=== PATIENT | female | born 1990 | race Caucasian/White ===

== ENCOUNTER → 2018-10-16 07:11 | Outpatient (CLI) | payer OTHER, SELFPAY ==
--- NOTE | 2018-10-16 07:17 | DI.US.S_ITS ---
PROCEDURE: US OB <= 14 WEEKS FETUS INDICATIONS: DATES OUTSIDE/PRIOR DATING DATA: Last menstrual period (LMP): 07/07/18. LMP-based estimated date of delivery (QUYEN): 04/13/19. First dating scan (date and location): 10/16/18. Estimated date of delivery (QUYEN) from first dating scan: 04/19/19. TECHNIQUE: Real-time scanning was performed of the fetus and maternal pelvic organs, with image documentation. Endovaginal scanning was also performed to better visualize the fetus and maternal ovaries. COMPARISON: None. FINDINGS: Embryo: BPD 2.3 cm, 13 weeks 6 days. Head circumference 8.7 cm, 13 weeks 6 days. Abdominal circumference 7.0 cm, 13 weeks 4 days. Femur length 1.1 cm, 13 weeks 1 day. Composite gestational age is 13 weeks 4 days. Measurement variability in dating: +/- 4 weeks by LMP, +/- 7 days by mean sac diameter (use before 6 weeks gestation if crown-rump length not able to be measured), +/- 5 days by crown-rump length (up to 8 weeks 6 days gestation), +/- 7 days by crown-rump length (up to 13 weeks 6 days gestation). Maternal organs: Ovaries not seen. Limited images through the kidneys demonstrate no hydronephrosis. IMPRESSION: 13 week 4 day gestational age, viability is documented. The delivery date is projected to be centered on 04/19/19. Followup anatomic survey at approximately 21 weeks gestation is recommended. Dictated by: Mo Hong M.D. on 10/16/2018 at 10:19 Approved by: Mo Hong M.D. on 10/16/2018 at 10:22
[2018-10-16 09:32] LABS: Add Manual Diff / Slide Review NO; Basophils Absolute Auto 0 /uL (0-100); Basophils Percent Auto 0.1 % (0-2); Eosinophils Absolute Auto 100 /uL (0-450); Eosinophils Percent Auto 1.6 % (2-4); Hematocrit 36.4 % (36-46); Hemoglobin 12.6 g/dL (12.0-16.0); Lymphocytes Absolute Auto 1400 /uL (1100-4500); Lymphocytes Percent Auto 21.1 % (25-40); Mean Corpuscular HGB Conc 34.5 % (30-36); Mean Corpuscular Hemoglobin 31.8 PG (26-34); Mean Corpuscular Volume 92.1 fL (80-100); Monocytes Absolute Auto 400 /uL (0-900); Monocytes Percent Auto 5.3 % (3-14); Neutrophils Absolute Auto 4700 /uL (1500-7000); Neutrophils Percent Auto 71.9 % (50-75); Platelet Count 235 X10^3/uL (150-400); Red Blood Cell Count 3.96 X10^6/uL (4.0-5.2); Red Cell Distribution Width 11.9 % (11.6-14.8); White Blood Cell Count 6.6 X10^3/uL (4.5-11.0)
[2018-10-16 09:35] LABS: Appearance Urine UA SL CLOUDY; Bilirubin Urine UA NEGATIVE (NEGATIVE); Glucose Urine UA NEGATIVE (Negative); Ketones Urine UA NEGATIVE (NEGATIVE); Leukocyte Esterase Urine UA 2+ (NEGATIVE); Nitrite Urine UA NEGATIVE (Negative); Occult Blood Urine UA NEGATIVE (Negative); Protein Urine UA NEGATIVE (Negative); Urobilinogen Urine UA 0.2 E.U./dL (0.2)
[2018-10-16 09:36] LABS: Color Urine UA Straw
[2018-10-16 10:10] LABS: Bacteria Urine Many (>30); RBC Urine 0-1/HPF (0-5/HPF); Squamous Epithelial Cell Urine 5-10 /HPF; WBC Urine 5-10/HPF (0-5/HPF)
[2018-10-16 10:29] LABS: Hepatitis B Surface Antigen NEGATIVE s/c (NEGATIVE); Rubella Antibody IgG 41.5 IU/mL (>15)
[2018-10-16 10:50] LABS: HIV 1 and 2 Antibody NEGATIVE (NEGATIVE); Hep C Virus Ab w/Reflex Quant NEGATIVE s/c (NEGATIVE)
[2018-10-17 22:00] LABS: RPR Screen Nonreactive (Nonreactive)
== END ==
PROVIDERS: Visit Provider Obstetrics & Gynecology
DX: Z34.01 Encounter for supervision of normal first pregnancy, first trimester (principal); Z3A.13 13 weeks gestation of pregnancy
CPT/HCPCS: 36415; 76801; 76817; 80055; 81003; 81015; 86703; 86787; 86803; 86850; 86900; 86901; 87086

== ENCOUNTER → 2018-11-25 12:10 | Outpatient (CLI) | payer OTHER, MEDICAID, SELFPAY ==
--- NOTE | 2018-11-25 12:11 | DI.US.S_ITS ---
PROCEDURE: US OB >= 14 WEEKS FETUS INDICATIONS: 20 week anatomic survey OUTSIDE/PRIOR DATING DATA: Last menstrual period (LMP): 07/07/18. LMP-based estimated date of delivery (QUYEN): 04/13/19. First dating scan (date and location): 10/16/18. Estimated date of delivery (QUYEN) from first dating scan: 04/19/19. TECHNIQUE: Real-time scanning was performed of the fetus, with image documentation and biometric measurements. Endovaginal scanning: Not performed COMPARISON: None. FINDINGS: General: A single living intrauterine gestation is present. Presentation: Vertex Placenta: Placental position is posterior, without previa. Amniotic fluid index: Visually within normal limits. heart rate: 131 beats per minute. Maternal cervical canal: 3.7 cm long. Normal lower limit is 2.5 cm. biometrics: Biparietal diameter: 4.3 cm, 19 week one day Head circumference: 15.2 cm, 18 weeks 2 days Abdominal circumference: 14 cm, 19 weeks 3 days Femur length: 2.9 cm, 18 weeks 6 days Estimated gestational age from initial scan: 19 week 2 days. Composite gestational age from present scan: 19 week zero day Estimated weight and percentile: 270 g, 31% Measurement variability for biometric dating: +/- 7 days from 14 weeks to 15 weeks 6 days gestation, +/- 10 days from 16 weeks to 21 weeks 6 days gestation, +/- 2 weeks from 22 weeks to 27 weeks 6 days gestation, +/- 3 weeks for 28 weeks gestation or later. weight reference: 4500 g or EFW >90/95% is considered macrosomia or large for gestational age. EFW <10% is small for gestational age. EFW 5% or less is considered intra-uterine growth restriction. Anatomic survey: Neuro: Ventricles are non-dilated at less than 10 mm. Cisterna magna is normal at 3-11 mm. Cerebellum is normal in size and morphology. Nuchal skin fold: Normal at less than 6 mm between 14-21 weeks gestational age. Face: Nose and lips, facial profile are normal. Spine: No evidence for spina bifida. Heart: 4-chambered heart is present, with normal ventricular outflow tracts. Diaphragm: Diaphragm is intact. Stomach: Left-sided stomach is present. Kidneys: No hydronephrosis. Normal is less than 5 mm in 2nd trimester, less than 7 mm in 3rd trimester. Cord: 3-vessel cord has orthotopic insertion. Bladder: Normal in size. Extremities: All 4 extremities identified. IMPRESSION: Single live interim with fetus in vertex presentation. heart rate is 131 beats per minute. Normal growth. Normal anatomic survey. Dictated by: Luke Rowell M.D. on 11/25/2018 at 14:08 Approved by: Luke Rowell M.D. on 11/25/2018 at 14:11
[2018-12-01 11:00] LABS: AFP, Serum 53.8 ng/mL; Cigarette Smoker N; Donated Egg NOT GIVEN; Donor Egg Age NOT GIVEN; Estriol, Free 1.29 ng/mL; Inhibin A, Dimeric 148 pg/mL; Maternal Ethnicity CAUCASIAN; Maternal Weight 152 lbs; Number of Fetuses 1; Previous Pregnancy Down Syndro NOT GIVEN; hCG, MoM 0.97; hCG, Serum 18.8 IU/mL
== END ==
PROVIDERS: Visit Provider Obstetrics & Gynecology
DX: Z34.02 Encounter for supervision of normal first pregnancy, second trimester (principal); Z3A.19 19 weeks gestation of pregnancy
CPT/HCPCS: 36415; 76811; 82105; 82677; 84702; 86336

== ENCOUNTER → 2019-03-10 09:52 | Outpatient (CLI) | payer OTHER, MEDICAID, SELFPAY ==
[2019-03-11 18:53] LABS: Strep Grp B PCR NEG for Grp B Strep
== END ==
PROVIDERS: Visit Provider Obstetrics & Gynecology
DX: Z34.03 Encounter for supervision of normal first pregnancy, third trimester (principal)
CPT/HCPCS: 87653

== ENCOUNTER 2019-03-31 16:34 | Observation (INO) | payer OTHER, MEDICAID, SELFPAY ==
[2019-03-31 17:20] LABS: Add Manual Diff / Slide Review NO; Basophils Absolute Auto 0 /uL (0-100); Basophils Percent Auto 0.2 % (0-2); Eosinophils Absolute Auto 100 /uL (0-450); Eosinophils Percent Auto 0.6 % (2-4); Hemoglobin 12.6 g/dL (12.0-16.0); Lymphocytes Absolute Auto 2100 /uL (1100-4500); Lymphocytes Percent Auto 14.9 % (25-40); Mean Corpuscular HGB Conc 34.1 % (30-36); Mean Corpuscular Hemoglobin 30.4 PG (26-34); Monocytes Absolute Auto 900 /uL (0-900); Monocytes Percent Auto 6.3 % (3-14); Neutrophils Absolute Auto 11000 /uL (1500-7000); Platelet Count 273 X10^3/uL (150-400); Red Blood Cell Count 4.16 X10^6/uL (4.0-5.2); Red Cell Distribution Width 13.4 % (11.6-14.8); White Blood Cell Count 14.1 X10^3/uL (4.5-11.0)
[2019-03-31 17:30] LABS: Aspartate Aminotransferase 16 IU/L (14-36); Blood Urea Nitrogen 9 mg/dL (7-17); Estimated Glomerular Filt Rate > 60.0 mL/min (>60); Uric Acid 5.4 mg/dL (2.5-6.2)
[2019-03-31 17:58] LABS: Bilirubin Urine UA NEGATIVE (NEGATIVE); Color Urine UA YELLOW; Glucose Urine UA NEGATIVE (Negative); Ketones Urine UA NEGATIVE (NEGATIVE); Leukocyte Esterase Urine UA TRACE (NEGATIVE); Nitrite Urine UA NEGATIVE (Negative); Occult Blood Urine UA 1+ (Negative); Protein Urine UA NEGATIVE (Negative); Urobilinogen Urine UA 0.2 E.U./dL (0.2)
[2019-03-31 18:01] LABS: Appearance Urine UA Slightly Cloudy
[2019-03-31 18:05] LABS: Amorphous Sediment Urine 2+; Bacteria Urine Few (2-10); Culture Indicated Urine Specimen Cultured; Mucus Urine 1+ (Negative); RBC Urine 1-5/HPF (0-5/HPF); Squamous Epithelial Cell Urine 1-5 /HPF (0-5/HPF); WBC Urine 5-10/HPF (0-5/HPF)
== END 2019-03-31 18:23 | disposition home or self-care (01) ==
PROVIDERS: Admitting Provider Obstetrics & Gynecology; Visit Provider Obstetrics & Gynecology
DX: O42.92 Full-term premature rupture of membranes, unspecified as to length of time between rupture and onset of labor (principal); Z3A.38 38 weeks gestation of pregnancy
CPT/HCPCS: 59025; 81001; 84450; 84550; 85025; 87086; G0378; G0379

== ENCOUNTER 2019-04-01 15:54 | Inpatient (IN) | payer OTHER, MEDICAID, SELFPAY ==
[2019-04-01 17:50] VITALS: BP 130/88
[2019-04-01 18:14] LABS: Add Manual Diff / Slide Review NO; Basophils Absolute Auto 0 /uL (0-100); Basophils Percent Auto 0.3 % (0-2); Eosinophils Absolute Auto 0 /uL (0-450); Eosinophils Percent Auto 0.2 % (2-4); Hematocrit 35.6 % (36-46); Lymphocytes Absolute Auto 1400 /uL (1100-4500); Lymphocytes Percent Auto 9.2 % (25-40); Mean Corpuscular HGB Conc 33.8 % (30-36); Mean Corpuscular Hemoglobin 30.1 PG (26-34); Mean Corpuscular Volume 89.1 fL (80-100); Monocytes Absolute Auto 700 /uL (0-900); Monocytes Percent Auto 4.3 % (3-14); Neutrophils Absolute Auto 13300 /uL (1500-7000); Platelet Count 270 X10^3/uL (150-400); Red Blood Cell Count 3.99 X10^6/uL (4.0-5.2); Red Cell Distribution Width 13.6 % (11.6-14.8); White Blood Cell Count 15.4 X10^3/uL (4.5-11.0)
[2019-04-01] MEDS: LACTATED RINGERS 1,000 ML 100 ML IV (23:38)
[2019-04-02] MEDS: CEFAZOLIN 2 GM/100 ML FROZ.PIGGY IV (00:05)
--- NOTE | 2019-04-02 03:30 | PM.OBPRVD ---
Delivery date: 04/02/19 Intrapartal events: None Cervical ripening method: none Induction method: none Delivery monitor: external FHT and external uterine Route of delivery: Episiotomy description: None L&D Laceration Description: Superficial (Bilateral labial) Delivery repair: chromic (4-0) Estimated blood loss (mL): 100 Anesthesia type: Epidural Complications: None Narrative: The patient was complete and pushed for 35 minutes. At 2:50 a.m., a live female delivered spontaneously over an intact perineum. No nuchal cord. The remainder of the body delivered without difficulty and was placed on mom's abdomen. The cord was double clamped and cut after it stopped pulsing. Cord bloods were obtained. Pitocin was given in the IV fluids. The placenta delivered intact with a 3 vessel cord at 2:59 a.m.. Fundus was massaged to firm. Bilateral superficial lacerations were repaired with 4 0 chromic in the usual fashion. Hemostasis was achieved. Apgars 9 at 1 minute and 9 at 5 minutes. Estimated blood loss 100 cc. Epidural analgesia. . Mom and stable to recovery. Plan for aftercare: To routine post care
[2019-04-02 05:06] VITALS: TEMP 38.9
[2019-04-02] MEDS: IBUPROFEN 600 MG TABLET PO ×2 (05:06→20:02)
[2019-04-02] MEDS: ACETAMINOPHEN 325 MG TABLET 650 MG PO (05:06)
[2019-04-02 06:20] LABS: Hematocrit 33.2 % (36-46); Hemoglobin 11.4 g/dL (12.0-16.0)
[2019-04-02] MEDS: PRENATAL VIT,CALC/IRON/FOLIC 1 TABLET 1 TAB PO (09:43)
[2019-04-02] MEDS: DOCUSATE 250 MG CAPSULE PO (09:43)
[2019-04-03] MEDS: IBUPROFEN 600 MG TABLET PO (08:12)
[2019-04-03 11:30] VITALS: BP 148/95; PULSE 68; RESP 17; TEMP 37
== END 2019-04-03 12:04 | disposition home or self-care (01) | DRG 560 ==
PROVIDERS: Admitting Provider Obstetrics & Gynecology; Visit Provider Obstetrics & Gynecology
DX: O42.92 Full-term premature rupture of membranes, unspecified as to length of time between rupture and onset of labor (principal); O70.0 First degree perineal laceration during delivery; Z3A.38 38 weeks gestation of pregnancy; Z37.0 Single live birth
CPT/HCPCS: 01967; 59025; 59050; 59409; 81001; 84112; 84450; 84550; 85014; 85018; 85025; 86850; 86900; 86901; 87086; G0378; G0379; J0690

== ENCOUNTER 2024-04-28 16:49 | Inpatient (IN) | payer OTHER, MEDICAID, SELFPAY ==
--- NOTE | 2024-04-28 17:18 | PM.OBHP.1 ---
OB HPI Date/Time Date of admission: 04/28/24 Date Patient Seen: 04/28/24 Time Patient Seen: 17:18 History of Present Condition Chief complaint: born [place] ferry : 2 Para: 2 Estimated Date of Delivery: 05/16/24 Estimated Gestational Age (weeks): 37.3 Narrative: Vivian Johnson is a 33 year old female at 37 weeks 3 days by sure LMP concordant with 9-week US. She began experiencing mild contractions at 1300 today and boarded the next ferry from [facility]. She delivered [place] the ferry at 1548 en route to the hospital. Placenta delivered spontaneously at 1600, reported by flight RN. Was flown to via helicopter. Calm, pink male in her arms upon arrival on stretcher with normal vaginal bleeding noted and minimal blood loss reported at the scene. Vivian is nauseous and vomiting and the flight RN pushed IV ondansetron in the room prior to giving report. care with CNMs was uncomplicated. History of Present care: good care, initiated at week # (9), number of visits (6) and pounds weight gain (24) Dating criteria: LMP confirmed by 1st trimester US Ultrasounds: normal 1st trimester US and normal mid trimester US Obstetrical complications: none Medical complications: none Preadmission Labs Blood type: O (+) positive -: Antibody screen: negative, Cystic fibrosis screen: negative, GBS status: negative, HBsAG: negative, HIV: negative, HSV 1: unknown (Not screened), HSV 2: unknown (Not screened) and RPR/VDLR: negative -: Chlamydia screen: not detected and Gonorrhea screen: not detected -: Rubella: immune and Varicella: immune HCT: 33.8 HCAB: negative PAP: Normal Quad screen: Normal 1 hr GTT: 136 Prior (ies) History: NSVB of viable female on 04/02/2019 at . [facility] Medical History Unspecified asthma (01/28/04) Appendicitis Surgical History History of appendectomy Social History (Updated 04/28/24 @ 17:46 by Fang Nassar CNM) marital status: number of children: 2 household members: spouse lives independently: Yes housing: house education level: college occupational status: employed Smoking Status: Never smoker Meds Home Medications and Allergies Home Medications Medication Instructions Recorded Confirmed Type norethindrone (contraceptive) 0.35 0.35 mg PO DAILY #28 tabs 05/18/19 Rx mg tablet ([facility]th[facility]) Allergies Allergy/AdvReac Type Severity Reaction Status Date / Time No Known Drug Allergies Allergy Verified 05/14/19 13:56 Review of Systems Review of Systems ROS: Yes All systems reviewed with the patient and are negative except as otherwise documented OB Exam Vital signs Blood Pressure: 125/72 Pulse Rate: 62 Temperature: 98.1 F Resp Effort & Inspection: normal respiratory effort and able to speak in complete sentences Auscultation: clear to auscultation bilaterally Cardio Rate: regular rate Rhythm: regular rhythm GI Inspection: normal to inspection Other: Vomiting during assessment Other: Fundus firm at umbilicus. Blood loss in stretcher estimated at 200 ml. Vagina and perineum inspected and intact. Placenta, membranes, and 3 vessel cord inspected and appear intact. Assessment and Plan Assessment and Plan Assessment and Plan narrative: Assessment: Precipitous NSVB en route Nausea with vomiting Plan: Admit, routine orders with CBC. Metoclopramide for nausea/vomiting. Anticipate discharge to home in 18-24 hours. Time-Based Coding :: [TOTAL MINUTES] spent with patient and on the chart (including review of chart, obtaining history, exam, reviewing outside data, placing orders, documenting exam and treatment plan, and counseling patient) on [DATE].
[2024-04-28] MEDS: KETOROLAC 30 MG/ML VIAL IV (17:28)
[2024-04-28 18:00] VITALS: BP 125/72
[2024-04-28] MEDS: OXYCODONE IR 5 MG TABLET PO ×2 (18:00→23:06)
[2024-04-28 18:09] VITALS: BP 125/72; PULSE 62; TEMP 36.7
[2024-04-28 20:46] LABS: Add Manual Diff / Slide Review NO; Basophils Absolute Auto 100 /uL (0-100); Basophils Percent Auto 0.5 % (0-2); Eosinophils Absolute Auto 0 /uL (0-450); Eosinophils Percent Auto 0.1 % (2-4); Hematocrit 32.4 % (36-46); Lymphocytes Absolute Auto 1100 /uL (1100-4500); Lymphocytes Percent Auto 6.1 % (25-40); Mean Corpuscular HGB Conc 33.9 % (30-36); Mean Corpuscular Hemoglobin 30.8 PG (26-34); Mean Corpuscular Volume 90.8 fL (80-100); Monocytes Absolute Auto 800 /uL (0-900); Monocytes Percent Auto 4.4 % (3-14); Neutrophils Absolute Auto 16300 /uL (1500-7000); Neutrophils Percent Auto 88.9 % (50-75); Platelet Count 211 X10^3/uL (150-400); Red Blood Cell Count 3.57 X10^6/uL (4.0-5.2); Red Cell Distribution Width 13.9 % (11.6-14.8); White Blood Cell Count 18.3 X10^3/uL (4.5-11.0)
[2024-04-28] MEDS: ONDANSETRON 4 MG/2 ML INJ IV (23:07)
[2024-04-29] MEDS: IBUPROFEN 600 MG TABLET PO ×2 (04:07→11:14)
[2024-04-29] MEDS: ACETAMINOPHEN 325 MG TABLET 650 MG PO (07:25)
[2024-04-29] MEDS: LANOLIN OINT 7 GM 1 APPLIC TOP (08:46)
[2024-04-29] MEDS: ONDANSETRON 4 MG/2 ML INJ (08:46)
[2024-04-29] MEDS: OXYCODONE IR 5 MG TABLET PO (08:48)
[2024-04-29] MEDS: ONDANSETRON 4 MG/2 ML INJ IV (09:05)
--- NOTE | 2024-04-29 09:20 | P.DS_ITS ---
Discharge Providers Provider Date of admission: 04/28/24 16:49 Discharge Date: 04/29/24 Consults: 04/29/24 17:14 Consult to [facility] Routine Comment: Discharge provider: Fang Nassar CNM Summary Hospital Course Date Patient Seen: 04/29/24 Time Patient Seen: 09:20 Diagnoses: O80 Hospital Course: Admitted after precipitous [place] to hospital. PPD1: Ambulating, voiding, independently. Tolerating a general diet. Using a nipple shield for , denies nipple pain. Has nausea d/t episodic cramping pain. Pain is well controlled with oxycodone along with ibuprofen/acetaminophen. Bleeding is scant. Peripartum Data Delivery Method: Natural Vaginal Laceration Description: None Episiotomy description: None complications: none 1: Gender: Male Disposition of : home Discharge Diagnosis (1) Vaginal delivery: Start Date: 04/28/24 Status: Resolved Status at Discharge Cognitive/behavioral status at discharge: oriented Functional status at discharge: independent ambulation Overall status at discharge: patient is progressing back to baseline Time Spent with Patient Time attestation: Total time spent providing and/or coordinating discharge services: Time spent: Greater than 30 minutes Objective Labs 04/28/24 20:36 Labs: Laboratory Results - last 24 hr 04/28/24 20:36 WBC 18.3 H RBC 3.57 L Hgb 11.0 L Hct 32.4 L MCV 90.8 MCH 30.8 MCHC 33.9 RDW 13.9 Plt Count 211 Neut % (Auto) 88.9 H Lymph % (Auto) 6.1 L [place] % (Auto) 4.4 Eos % (Auto) 0.1 L Baso % (Auto) 0.5 Neut # (Auto) 97781 H Lymph # (Auto) 1100 [place] # (Auto) 800 Eos # (Auto) 0 Baso # (Auto) 100 Exam Vital Signs (past 8 hours): BP: 121/73 HR: 58 bpm RR: 16/min Temp: 98.7 F Other: Fundus firm @ u-1, lochia small without clots. Perineum intact. Psych Appearance: grossly normal and well kempt Mental Status: mental status grossly normal Mood: congruent mood Affect: normal affect Discharge Plan Discharge Plan Patient Disposition: Home Discharge orders & Medications Prescriptions: New ibuprofen 600 mg Tablet 600 mg PO Q6HR PRN (Reason: Pain, Mild (1-3)) 14 Days Qty: 60 0RF oxycodone 5 mg Tablet 5 mg PO Q4HR PRN (Reason: Pain, Moderate (4-6)) 7 Days Qty: 10 0RF Discontinued norethindrone (contraceptive) [Ortho [facility]or] 0.35 mg tablet 0.35 mg PO DAILY Qty: 28 11RF Follow up/Referrals: Fang Nassar CNM [[employer] Planning Analyst] - (2-week phone call: 05/12/24 at 09:30 AM 6-week in person visit: 06/09/24 at 11:15 AM) Diet/Activity/Treatments Diet: Diet as Tolerated Diet comment: Hydrate & high fiber diet Activity: Bed rest x 2 weeks. No driving x 2 weeks. No heavy lifting. Cold/Heat Therapy: Heat for cramping PRN Skin/Wound/Dressing Care Skin care: Usual skin care Report to your healthcare provider any signs of infection, such as:: chills, fever, increased pain, unusual drainage and unusual redness Visit Report/Discharge Packet Instructions: Depression Stand Alone Forms: Patient Portal/API, Stroke Signs & Symptoms
[2024-04-29 10:30] VITALS: BP 125/72; PULSE 62; RESP 17; TEMP 36.7
== END 2024-04-29 11:28 | disposition home or self-care (01) | DRG 566 ==
PROVIDERS: Admitting Provider Nurse Practitioner Obstetrics & Gynecology; Referring Provider Nurse Practitioner Obstetrics & Gynecology; Visit Provider Nurse Practitioner Obstetrics & Gynecology
DX: O62.3 Precipitate labor (principal); Z3A.37 37 weeks gestation of pregnancy; Z37.0 Single live birth
CPT/HCPCS: 36415; 85025; G0379; J1885; J2405